=== PATIENT | male | born 1960 | race Caucasian/White ===

== ENCOUNTER 2017-05-04 13:25 | Emergency (ER) | payer OTHER ==
[~2017-05-04] VITALS: Ht 177.8 cm; Wt 77.1 kg
[2017-05-04] MEDS ORDERED: BACTRIM DS TAB1 EACH PO (15:07)
[2017-05-04] MEDS ORDERED: PREDNISONE20 MG PO (15:07)
[2017-05-04 15:20] VITALS: BP 123/74
== END 2017-05-04 15:21 | disposition home or self-care (01) ==
LOC: ER 13:25
DX: R50.9 Fever, unspecified (principal); J00 Acute nasopharyngitis [common cold]; J02.9 Acute pharyngitis, unspecified
CPT/HCPCS: 99282

== ENCOUNTER 2019-10-20 09:10 | Emergency (ER) | payer OTHER ==
[~2019-10-20] VITALS: Ht 177.8 cm; Wt 77.1 kg
[~2019-10-20 09:10] MED LIST: BACTRIM DS TAB1 EACH PO; PREDNISONE20 MG PO
[2019-10-20] MEDS ORDERED: SODIUM CHLORIDE 0.9% 1000ML 1,000 ML IV STA (09:41)
[2019-10-20] MEDS ORDERED: MORPHINE SULFATE 2 MG/ML SYR 1ML IV NR (10:00)
--- NOTE | 2019-10-20 10:01 | NUR ---
pt yelling at staff. explained trying to help pt, pt kept yelling and stating staff was "too ruff" even when pt was not being touched. tried explaining plan of care and all happenings to pt, unsuccessful automotive consultant of information by pt. continued to try to accomodate pt without success.
[2019-10-20] MEDS ORDERED: ONDANSETRON HCL INJ 2MG/ML 2ML 2 MG/ML VIAL IV NR (10:15)
[2019-10-20] MEDS ORDERED: CEFAZOLIN SOD 1 GM/NS 50ML 50 ML IV ONE (10:15)
--- NOTE | 2019-10-20 10:18 | NUR ---
FIRM PAPER CHUX USED FOR TEMPORARY SPLINT WITH COBAN. +CAP REF BEFORE AND AFTER < 2 SECONDS. PT DID NOT TOLERATE WELL AT ALL. C-COLLAR PLACED PER MD ORDER. PT ON FULL MONITORS WITH BILATERAL IV'S AND O2. LABS OBTAINED. PT STATED DURING ENTIRE CONTINUM OF CARE ABOUT COMFORT, COLD, POSITIONING. DESPITE MULTIPLE BEST EFFORTS OF MULTIPLE NURSING STAFF, PT CONTINUED TO COMPLAIN ABOVE. WARM BLANKETS WERE GIVEN, PT REFUSED TO ALLOW HIS SHORTS OFF, SHOES, SOCKS, SHIRT, HAT, NECK BAND AND MASK ALL REMOVED.
--- NOTE | 2019-10-20 10:20 | NUR ---
[facility] HERE, REPORT GIVEN AND PAPERWORK GIVEN.
--- NOTE | 2019-10-20 10:25 | Emergency Department Note ---
History of Present Illnes History of Present Illness Chief Complaint: General Medicine Complaints History of Present Illness This is a 58 year old male fell backwards off ladder approx 4 ft and landed on right arm denies loc denies hitting head denies getting dizzy states he just lost his balance presents with bruising to right flank, right shoulder, and left forearm and and abrasion to left knee presents with deformities to right wrist and right elbow and puncture wound to right wrist pt presents with profuse sweating and states he blacked out unknown length of time a&o x 3. Historian: Patient Arrival Mode: Car Project Control Officer Required: No Onset (how long ago): minute(s) Location: RIGHT CHEST, RIGHT WRIST Quality: PAIN Radiation: Reports non-radiation Severity: severe Onset quality: sudden Timing of current episode: constant Progression: unchanged Chronicity: new Context: Denies recent illness Relieving factors: none Exacerbating factors: none Associated symptoms: Reports denies other symptoms Treatments prior to arrival: none Past Medical/Family History Physician Review I have reviewed the patient's past medical and family history. Any updates have been documented here. Past Medical History Recent Fever: No Clinical Suspicion of Infectio: No New/Unexplained Change in Ment: No Past Medical History: None Other Surgery: LEFT FEMUR SURGERY UMBILCAL HERNIA REPAIR Social History Smoking Cessation: Never Smoker Counseling Performed: No Alcohol Use: Social Any Illegal Drug Use: No TB Exposure/Symptoms: No Physically hurt or threatened: No Family History Family history of heart diseas: No Other Last Tetanus: UTD Any Pre-Existing Lines (PICC,: No Review of Systems Review of Systems Constitutional: Reports no symptoms EENTM: Reports no symptoms Cardiovascular: Reports as per HPI, Reports chest pain Respiratory: Reports no symptoms Gastrointestinal: Reports no symptoms Genitourinary: Reports no symptoms Musculoskeletal: Reports as per HPI Integumentary: Reports no symptoms Neurological: Reports no symptoms Psychological: Reports no symptoms Endocrine: Reports no symptoms Hematological/Lymphatic: Reports no symptoms Physical Exam Related Data Allergies: Coded Allergies: Penicillins (Verified Allergy, Mild, SWELLING, 05/04/17) hydroxyzine (Verified Allergy, Unknown, 10/20/19) meperidine (Verified Allergy, Unknown, 10/20/19) Triage Vital Signs Vital Signs Date Time Temp Pulse Resp B/P (MAP) Pulse Ox O2 Delivery O2 Flow Rate FiO2 10/20/19 09:29 Room Air Vital signs reviewed: Yes (HYPOTENSIVE, TACHYCARDIC) Physical Exam CONSTITUTIONAL Constitutional: Present diaphoretic HENT HENT: Present normocephalic, Present atraumatic, Present oropharynx clear/moist, Present nose normal HENT L/R: Present left ext ear normal, Present right ext ear normal EYES Eyes: Reports PERRL, Reports conjunctivae normal NECK Neck: Present other (NO TENDERNESS BUT C-COLLAR PLACED) PULMONARY Pulmonary: Present respiratory distress (MILD TACHYPNEA), Present chest tenderness (TENDER RIGHT LATERAL CHEST WALL, RIGHT CHEST WALL AND POSTERIOR CHEST ABRASIONS, SPLINTING, DECREASED BS's RIGHT BASE) CARDIOVASCULAR Cardiovascular: Present regular rhythm, Present tachycardia GASTROINTESTINAL Abdominal: Present soft, Present nontender, Present bowel sounds normal GENITOURINARY Genitourinary: Present exam deferred SKIN Skin: Present pale MUSCULOSKELETAL Musculoskeletal: Present other (RIGHT WRIST DEFORMITY WITH DORSAL LACERATION ~1 CM, GOOD RADIAL PULSE AND DISTAL CAP REFILL, DECR SENS TO 4TH/5TH FINGERS, DECR ROM OF 4TH/5TH FINGERS) NEUROLOGICAL Neurological: Present alert, Present oriented x 3, Present no gross motor or sensory deficits PSYCHOLOGICAL Psychological: Present mood/affect normal, Present judgement normal Procedures 12 Lead ECG Interpretation ECG Interpretation : ECG: ECG 1 Project Control Officer: Interpreted by ED physician Date: Oct 20, 2019 Time: 09:46 Rhythm: sinus rhythm Rate: normal (60) QRS axis: normal ST segments normal: No T wave elevation: all (MINIMAL <1 MM GLOBAL (EXCEPT LEADS aVL & V1V2) UPSLOPING ELEVATION C/W REPOLARIZATION VS PERICARDITIS (NO WI DEPRESSION)) Other findings: LVH, early repolarization Clinical Impression: abnormal ECG Critical Care Time Total Critical Care Time (min): 30 Critical care time exclusive o: separately billable procedures Critcal care necessary due to: shock, trauma Critcal care time spent by me: order/perform tx or interventions, order/review laboratory studies, re-evaluation of patient condition, review of old charts Assessment & Plan Medical Decision Making MDM TRAUMA, FALL OFF LADDER WITH LOC AND RIGHT CHEST TENDERNESS AND LIKELY OPEN FX RIGHT WRIST, PT TACHYCARDIC AND HYPOTENSIVE - 2 LG IV'S, FLUID RESUSCITATION, XRAYS OF CHEST, RIGHT WRIST/FOREARM/SHOULDER, TRAUMA CT'S (BRAIN/C- SPINE/CHEST/ABD/PELVIS) AND TRAUMA TRANSFER INITIATED WITH [facility] - WE MAY NOT BE ABLE TO GET ALL CT'S DONE PRIOR TO TRANSFER Reassessment Reassessment TRANSFER ACCEPTED WITHOUT CONSULT BY DR BELLE AT [facility] WITHOUT CONSULT Assessment & Plan Final Impression: (1) Fall (2) Multiple trauma Depart Disposition: TRANS TO OTHER [facility] Last Vital Signs Date Time Temp Pulse Resp B/P (MAP) Pulse Ox O2 Delivery O2 Flow Rate FiO2 10/20/19 09:29 Room Air Home Meds Active Scripts Prednisone (PREDNISONE) 20 Mg Tab, 40 MG PO DAILY for 5 Days, #10 TAB Prov:WHIT DOVER MD 05/04/17 Sulfamethoxazole/Trimethoprim (BACTRIM DS TABLET) 1 Each Tablet, 1 TAB PO BID, #20 TAB 0 Refills Prov:WHIT DOVER MD 05/04/17 Medications in the ED Morphine Sulfate 2 mg ONCE STAT IV ; Start 10/20/19 at 09:41; Stop 10/20/19 at 09:42; Status UNV Ondansetron HCl 4 mg ONCE STAT IV ; Start 10/20/19 at 09:41; Stop 10/20/19 at 09:42; Status UNV Sodium Chloride 1,000 ml @ 0 mls/hr Q0M STAT IV ; Start 10/20/19 at 09:41; Stop 10/20/19 at 09:53; Status DC Cefazolin Sodium 50 ml @ 100 mls/hr ONCE ONCE IV ; Start 10/20/19 at 09:45; Stop 10/20/19 at 10:14; Status UNV ARNOLDO REDDY MD Oct 20, 2019 10:25
--- NOTE | 2019-10-20 10:31 | NUR ---
PT LEAVING WITH [facility]
--- NOTE | 2019-10-20 11:03 | Diagnostic Imaging Report ---
EXAMINATION: CHEST SINGLE (PORTABLE) INDICATION: FALL OFF LADDER COMPARISON: None FINDINGS: AP view TUBES and LINES: None. LUNGS/PLEURA: Lungs are well inflated. There is no evidence of pneumonia or pulmonary edema.. There is no pleural effusion or pneumothorax. HEART AND MEDIASTINUM: The cardiomediastinal silhouette is unremarkable. BONES AND SOFT TISSUES: No acute osseous lesion. Soft tissues are unremarkable. UPPER ABDOMEN: No free air under the diaphragm. IMPRESSION: No acute thoracic abnormality. Signed by: Kiko Kirby MD on 10/20/2019 11:00 AM
--- NOTE | 2019-10-20 11:03 | Diagnostic Imaging Report ---
SHOULDER RIGHT COMPLETE - Multiple views HISTORY: FALL OFF LADDER COMPARISON: None available. FINDINGS: Bones: No acute displaced fracture. Osseous alignment is within normal limits. Joints: The joint spaces are well-maintained. Soft tissues: The soft tissues appear unremarkable. IMPRESSION: No acute radiographic abnormality, although not complete shoulder views are obtained. Recommend complete shoulder views. Signed by: Kiko Kirby MD on 10/20/2019 10:59 AM
--- NOTE | 2019-10-20 11:05 | Diagnostic Imaging Report ---
FOREARM RIGHT 2 VIEW - Multiple views HISTORY: FALL OFF LADDER COMPARISON: None available. FINDINGS: Bones: There is a mildly displaced comminuted fracture of the distal radial shaft. There is a chip fracture of ulnar styloid. Osseous alignment is within normal limits. Joints: The joint spaces are well-maintained. Soft tissues: The soft tissues appear unremarkable. IMPRESSION: Mildly displaced comminuted fracture of the distal radial shaft. A chip fracture of ulnar styloid. Recommend wrist views to assess carpal fractures. Signed by: Kiko Kirby MD on 10/20/2019 11:02 AM
[2019-10-20 11:25] LABS: BASOPHILS # (AUTO) 0.1 (0.0-0.1); BASOPHILS % 0.9 % (0.0-1.0); EOSINOPHILS # (AUTO) 0.1 (0.0-0.4); EOSINOPHILS % 1.2 % (0.0-6.0); HEMATOCRIT 50.9 % (38.2-49.6); HEMOGLOBIN 16.3 g/dL (14.0-18.0); LYMPHOCYTES # (AUTO) 2.4 (1.0-3.2); LYMPHOCYTES % 30.1 % (18.0-39.1); MEAN CORPUSCULAR HEMOGLOBIN 29.9 pg (28-32); MEAN CORPUSCULAR VOLUME 93.2 fL (81-99); MONOCYTES # (AUTO) 0.5 (0.2-0.8); MONOCYTES % 6.1 % (4.4-11.3); NEUTROPHILS # (AUTO) 4.8 (2.1-6.9); NEUTROPHILS % 59.8 % (38.7-80.0); PLATELET COUNT 292 x10e3/uL (140-360); RED BLOOD COUNT 5.46 x10e6/uL (4.3-5.7); RED CELL DISTRIBUTION WIDTH 12.8 % (11.7-14.4)
[2019-10-20 11:35] LABS: INR 0.92; PROTHROMBIN TIME 12.9 seconds (11.9-14.5)
[2019-10-20 11:36] LABS: PARTIAL THROMBOPLASTIN TIME 21.2 seconds (23.8-35.5)
[2019-10-20 11:46] LABS: ALBUMIN 4.7 g/dL (3.5-5.0); ALBUMIN/GLOBULIN RATIO 1.1 (0.8-2.0); ANION GAP 15.8 mmol/L (8-16); CALCIUM 9.7 mg/dL (8.4-10.2); CREATININE, SERUM 1.29 mg/dL (0.72-1.25); POTASSIUM 3.8 mmol/L (3.5-5.1)
== END 2019-10-20 10:41 | disposition other institution (70) ==
LOC: ER 09:34
DX: S52.351A Displaced comminuted fracture of shaft of radius, right arm, initial encounter for closed fracture (principal); S52.611A Displaced fracture of right ulna styloid process, initial encounter for closed fracture; S06.9X9A Unspecified intracranial injury with loss of consciousness of unspecified duration, initial encounter; S20.211A Contusion of right front wall of thorax, initial encounter; W11.XXXA Fall on and from ladder, initial encounter; R94.31 Abnormal electrocardiogram [ECG] [EKG]
CPT/HCPCS: 36415; 71045; 73030; 73090; 80053; 85025; 85610; 85730; 93005; 99284; J7030